=== PATIENT | female | born 1955 | race Caucasian/White ===

== ENCOUNTER 2017-12-04 18:39 | Emergency (ER) | payer SELFPAY ==
[~2017-12-04] VITALS: Ht 157.5 cm; Wt 86.2 kg
[~2017-12-04 18:39] MED LIST: CEPH500C3 PO; GABA600T PO; PRED10PA PO
[2017-12-04 18:52] VITALS: BP 171/95; PULSE 88; RESP 22; TEMP 99.3; O2SAT 95
[2017-12-04] MEDS ORDERED: GABA600T PO (19:07)
[2017-12-04] MEDS ORDERED: PROMSYP3 PO (20:23)
--- NOTE | 2017-12-04 20:24 | PD ---
HPI Chief Complaint: Cold / Flu Symptoms Time Seen by Provider: 19:42 Travel History International Travel<30 days: No Contact w/Intl Traveler<30days: No Traveled to known affect area: No History of Present Illness HPI 62 year old female here with nasal congestion, sore throat, cough 4 days. She denies fever or chills. Symptom severity is mild. No aggravating or alleviating factors. She denies foreign travel or sick contacts. PFSH Past Medical History Arthritis: Yes Diminished Hearing: No Musculoskeletal: Yes (SCIATICA) Neurologic: Yes (NEUOPATHY) Immunizations Current: No Tetanus Vaccination: > 5 Years Influenza Vaccination: No ?: Not LMP: menapausal Menopausal: Yes : 0 Past Surgical History Tonsillectomy: Yes Other Surgery: Yes (RIGHT HAND SURGERY LONG TIMES AGO, for aneurysm of the hand ) Social History Alcohol Use: Yes (RARELY) Tobacco Use: No Substance Use: No Allergies-Medications (Allergen,Severity, Reaction): Coded Allergies: Influenza Virus Vaccines (Verified Allergy, Intermediate, Swelling, ) MAKES ARM SWELL Reported Meds & Prescriptions Reported Meds & Active Scripts Active Reported Gabapentin 600 Mg Tab 600 Mg PO BID Review of Systems Except as stated in HPI: all other systems reviewed are Neg General / Constitutional: No: Fever Eyes: No: Visual changes HENT: Positive: Congestion Cardiovascular: No: Chest Pain or Discomfort Respiratory: Positive: Cough Gastrointestinal: No: Abdominal Pain Genitourinary: No: Dysuria Physical Exam Narrative GENERAL: Alert and well-appearing female SKIN: Warm and dry. No rash HEAD: Normocephalic. EYES: No scleral icterus. No injection or drainage. Ears/nose/throat: No TM erythema, clear nasal discharge, no sinus tenderness, mild oropharynx erythema without tonsillar hypertrophy or exudate NECK: Supple, trachea midline. No JVD or lymphadenopathy. CARDIOVASCULAR: Regular rate and rhythm without murmurs, gallops, or rubs. RESPIRATORY: Breath sounds equal bilaterally. No accessory muscle use. GASTROINTESTINAL: Abdomen soft, non-tender, nondistended. MUSCULOSKELETAL: No cyanosis, or edema. BACK: Nontender without obvious deformity. No CVA tenderness. Data Data Last Documented VS Vital Signs Date Time Temp Pulse Resp B/P (MAP) Pulse Ox O2 Delivery O2 Flow Rate FiO2 12/04/17 18:52 99.3 88 22 171/95 (120) 95 Orders Orders Influenzae A/B Antigen (12/04/17 19:31) MDM Medical Decision Making Medical Screen Exam Complete: Yes Emergency Medical Condition: Yes Differential Diagnosis Influenza, URI, bronchitis, pneumonia Narrative Course 62-year-old female here with mild URI-like symptoms. Influenza is negative. She is nontoxic appearing. Her vital signs are stable. Diagnosis Primary Impression: Upper respiratory infection Qualified Codes: J06.9 - Acute upper respiratory infection, unspecified; B97.89 - Other viral agents as the cause of diseases classified elsewhere Referrals: Primary Care Physician Additional Instructions: Prometh DM as needed for cough. Tylenol or ibuprofen as needed for pain and fever. Drink plenty of fluids. Rest Scripts Dextromethorphan-Promethazine Liq (Promethazine-Dextromethorphan Liq) 6.25-15 Mg /5 Ml Syrp 10 ML PO Q6HR Y for COUGH, #120 ML Prov: Tess Harmon 12/04/17 Disposition: 01 DISCHARGE HOME Condition: Stable Tess Harmon Dec 04, 2017 20:24
== END 2017-12-04 20:29 | disposition home or self-care (01) ==
LOC: PHEFT 18:39
DX: J06.9 Acute upper respiratory infection, unspecified (principal); B97.89 Other viral agents as the cause of diseases classified elsewhere; R05 Cough; Z87.39 Personal history of other diseases of the musculoskeletal system and connective tissue; Z86.69 Personal history of other diseases of the nervous system and sense organs
CPT/HCPCS: 87804; 99283